=== PATIENT | male | born 1945 | race Two or more races ===

== ENCOUNTER 2019-04-24 10:08 | Inpatient (IN) | payer MEDICARE ==
[~2019-04-24] VITALS: Ht 180.3 cm; Wt 55.4 kg
[2019-04-24] MEDS ORDERED: SODIUM CHLORIDE 0.9% 500 ML IV ONE (10:33)
[2019-04-24 11:21] LABS: Basophils # (auto) 0.1 uL; Basophils % (auto) 1.2 % (0.0-2.0); Eosinophils # (auto) 0.2 uL; Eosinophils % (auto) 1.7 % (0.0-7.0); Hematocrit 36.3 % (41.0-53.0); Hemoglobin 11.9 g/dL (13.5-17.5); Lymphocytes % (auto) 11.2 % (10.0-50.0); Mean Corpuscular Hgb Conc. 32.8 g/dL (32.0-36.0); Mean Corpuscular Volume 85.3 fL (80.0-100.0); Monocytes # (auto) 0.7 uL; Neutrophils # (auto) 7.1 uL; Neutrophils % (auto) 77.9 % (37.0-80.0); Nucleated Red Blood Cells % 0.1 %; Platelet Count (auto) 251 10^3/uL (140-450); Red Blood Cells 4.26 10^6/uL (4.5-5.90); White Blood Cell 9.2 10^3/uL (4.4-10.8)
[2019-04-24 11:42] LABS: Alanine Aminotransferase 11 U/L (16-61); Albumin 2.8 g/dL (3.4-5.0); Anion Gap 8 (5-15); Aspartate Aminotransferase 10 U/L (15-37); BUN/Creatinine Ratio 20.2; Blood Urea Nitrogen 20 mg/dL (7-18); Calcium 8.2 mg/dL (8.5-10.1); Carbon Dioxide 28 mmol/L (21-32); Chloride 98 mmol/L (98-107); GFR African American 95 mL/min; GFR Non-African American 78 mL/min; Glucose 239 mg/dL (74-106); Magnesium 2.3 mg/dL (1.6-2.6); Potassium 4.2 mmol/L (3.5-5.1); Sodium 134 mmol/L (136-145)
[2019-04-24 11:46] LABS: Alkaline Phosphatase 114 U/L (45-117); Bilirubin, Total 0.4 mg/dL (0.2-1.0); Total Protein 6.9 g/dL (6.4-8.2)
[2019-04-24 16:27] LABS: Urine WBC None Seen /hpf (0 - 3)
[2019-04-24 16:33] LABS: Urine Bacteria NONE SEEN /hpf (None Seen); Urine Blood Negative /uL (Negative); Urine Specific Gravity 1.018 (1.001-1.035)
[2019-04-24] MEDS ORDERED: NITROGLYCERIN 0.4 MG SL TAB SL PRN (17:30)
[2019-04-24] MEDS ORDERED: MORPHINE SULF INJ 2 MG/ML SYRINGE 1ML IV PRN ×2 (17:30→17:45)
[2019-04-24] MEDS ORDERED: DEXTROSE (50%) 50ML SYRG IV PRN (17:30)
[2019-04-24] MEDS ORDERED: DOCUSATE SOD 100 MG CAP PO PRN (17:45)
[2019-04-24] MEDS ORDERED: HYDROcodone-ACET 5/325MG TAB PO PRN (17:45)
[2019-04-24] MEDS ORDERED: IPRATROPIUM BROM 0.5 MG/2.5ML INH SOL NEB PRN (17:45)
[2019-04-24] MEDS ORDERED: ACETAMINOPHEN 500 MG TAB PO PRN (17:45)
[2019-04-24] MEDS ORDERED: ALBUTEROL SULF 2.5 MG/0.5ML(0.5%) NEB SOLN NEB PRN (17:45)
[2019-04-24] MEDS ORDERED: ONDANSETRON HCL 4 MG/2 ML VIAL IV PRN (17:45)
[2019-04-24] MEDS ORDERED: FOLIC ACID 1 MG, MULTIPLE VITAMIN 10 ML, MAGNESIUM SULF SDV 50% 8 MEQ, THIAMINE INJ 100... INJ SCH ×5 (18:30)
--- NOTE | 2019-04-24 18:40 | NUR ---
RT NOTE: PT ASSESSED FOR PRN MED NEB TX, PT ON ROOM AIR SPO2 96% BS CLEAR AND DECREASED. HR 72, RR 18, FAMILY AT BEDSIDE. PT NOTIFIED OF PRN MED NEB TX AND IF SOB OCCURS TO HAVE RT PAGED. NO TX INDICATED AT THIS TIME.
[2019-04-24 18:54] VITALS: BP 154/61
[2019-04-24 19:14] VITALS: BP 146/88
[2019-04-24 19:17] VITALS: BP 184/99
--- NOTE | 2019-04-24 20:00 | NUR ---
Opening Shift Note Assumed care of patient, awake and alert. No S/S of distress/SOB or pain. Instructed on POC and to call for assist PRN, will continue to monitor for changes Q1hr and PRN.Family at bedside.Bed alarm on.
[2019-04-24] MEDS: ACCU-CHEK COMFORT CURVE STRIP VI SCH (21:22)
[2019-04-24] MEDS: InsuLIN REG 1unit/0.01ml Soln (100units/ml) SC SCH (21:23)
[2019-04-24 23:08] VITALS: BP 146/88
[2019-04-25] MEDS ORDERED: LATA0.0020 EACHEYE (00:42)
[2019-04-25] MEDS ORDERED: OXCA600T3 PO (00:42)
[2019-04-25] MEDS ORDERED: HYDR1TAB97 PO (00:42)
[2019-04-25] MEDS ORDERED: CITA-77 PO (00:42)
[2019-04-25] MEDS ORDERED: DONE10TA17 PO (00:42)
[2019-04-25] MEDS ORDERED: METF-370 PO (00:42)
[2019-04-25] MEDS ORDERED: ASPI-404 PO (00:42)
[2019-04-25] MEDS ORDERED: CAR125T PO (00:42)
--- NOTE | 2019-04-25 02:00 | NUR ---
Picture of the left posterior arm taken .
[2019-04-25 05:18] VITALS: BP 142/77
[2019-04-25 06:03] LABS: Basophils # (auto) 0.1 uL; Basophils % (auto) 0.9 % (0.0-2.0); Eosinophils # (auto) 0.3 uL; Eosinophils % (auto) 4.2 % (0.0-7.0); Hematocrit 36.2 % (41.0-53.0); Lymphocytes # (auto) 1.1 uL; Lymphocytes % (auto) 16.5 % (10.0-50.0); Mean Corpuscular Hgb Conc. 33.2 g/dL (32.0-36.0); Mean Corpuscular Volume 84.2 fL (80.0-100.0); Monocytes # (auto) 0.7 uL; Monocytes % (auto) 10.6 % (0.0-12.0); Neutrophils # (auto) 4.7 uL; Neutrophils % (auto) 67.8 % (37.0-80.0); Nucleated Red Blood Cells % 0.1 %; Platelet Count (auto) 236 10^3/uL (140-450); Red Cell Distribution Width 14.8 % (11.8-14.3); White Blood Cell 6.9 10^3/uL (4.4-10.8)
[2019-04-25 06:07] LABS: INR 1.01 (0.9-1.15); Partial Thromboplastin Time 35.6 sec (23.64-32.05)
[2019-04-25 06:24] LABS: BUN/Creatinine Ratio 17.2; Calcium 8.6 mg/dL (8.5-10.1); Magnesium 2.4 mg/dL (1.6-2.6); Potassium 3.8 mmol/L (3.5-5.1)
--- NOTE | 2019-04-25 06:40 | NUR ---
Respiratory note: PRN MED NEB TX NOT INDICATED AT THIS TIME. HR 61, RR 16, SPO2 94% ON RA, BILATERAL BS CLEAR AND SLIGHTLY DIMINISHED..PT INFORMED TO HIT CALL LIGHT IF FEELING SOB OR WHEEZING
[2019-04-25] MEDS: ACCU-CHEK COMFORT CURVE STRIP VI SCH ×4 (06:57→21:02)
[2019-04-25] MEDS: InsuLIN REG 1unit/0.01ml Soln (100units/ml) SC SCH ×4 (06:58→21:02)
--- NOTE | 2019-04-25 07:35 | NUR ---
Report given to Luz Taveras,patient is resting no distress, and told that the belonging form ,patient said that his daughter will be the to sign for the paper.
--- NOTE | 2019-04-25 08:50 | NUR ---
Opening Shift Note Assumed care of patient, awake and alert. No S/S of distress/SOB or pain. Instructed on POC and to call for assist PRN, will continue to monitor for changes Q1hr and PRN.
[2019-04-25 09:00] VITALS: BP 149/75
[2019-04-25] MEDS: PANTOPRAZOLE 40 MG TAB PO SCH (10:07)
[2019-04-25] MEDS: Glucerna Carbsteady SHAKE Vanilla 8oz PO SCH ×3 (10:07→12:00)
--- NOTE | 2019-04-25 11:10 | NUR ---
Nutrition consult/assessment Notes Please see attached link for complete assessment Est. Needs IBW (78 kg): 0758-6078 kcal (25-30 kcal/kgIBW), 78-93 gms pro (1.0-1.2 gms/kgIBW). Will continue to monitor pertinent labs and reassess nutrient need prn Addendum: 04/25/19 at [address] Amended: Links added.
[2019-04-25] MEDS ORDERED: IOHEXOL 300 MG/ML 100ML BOTTLE IJ ONE (12:29)
--- NOTE | 2019-04-25 12:30 | NUR ---
CT ABD WITH CONTRAST Patient taken off unit via wheelchair for CT Abd with contrast. Patients daughter Joan accompanied patient. Patients IV hep locked, line flushed with 10ml, line patent.
[2019-04-25 13:00] VITALS: BP 121/72
[2019-04-25 16:39] VITALS: BP 167/90
--- NOTE | 2019-04-25 18:37 | NUR ---
TELEPHONE ORDER Pts BP elevated. Paged manager of investigations hospitalist Mariusz Moncada. T/O read back and noted.
--- NOTE | 2019-04-25 20:00 | NUR ---
Opening Shift Note Assumed care of patient, awake and alert. No S/S of distress/SOB or pain. InsTructed on POC and to call for assist PRN, will continue to monitor for changes Q1hr and PRN.
[2019-04-25] MEDS: CARVEDILOL 3.125 MG TAB PO SCH (21:02)
[2019-04-25 21:47] VITALS: BP 187/106
--- NOTE | 2019-04-25 22:38 | NUR ---
Respiratory note: PT SEEN AND ASSESSED FOR PRN MED NEB TX AT 2238. TX NOT INDICATED AT THIS TIME. PT DISPLAYING NO SIGNS OF DISTRESS. BREATH SOUNDS WERE DIMINISHED BILATERALLY. HR 72 RR 18 POX 94% ON ROOM AIR. PT AWARE TO CALL FOR RT IF ANY DISTRESS OCCURS.
[2019-04-26 05:00] VITALS: BP 197/118
--- NOTE | 2019-04-26 05:28 | NUR ---
Called/paged Venu Taveras called re:patients blood pressure of 197/118, p-of 79 . Waiting for call back. Continue care.
--- NOTE | 2019-04-26 05:34 | NUR ---
returned call Emy Taveras returned call, updated on patient status and reason for call, orders received of labetalol 10mg.i.v.p x one. Continue care.
[2019-04-26] MEDS ORDERED: LABETALOL HCL 5 MG/ML ML 20ML VIAL IV ONE (05:45)
[2019-04-26] MEDS: ACCU-CHEK COMFORT CURVE STRIP VI SCH ×2 (05:51→11:30)
[2019-04-26] MEDS: InsuLIN REG 1unit/0.01ml Soln (100units/ml) SC SCH ×2 (05:51→11:30)
--- NOTE | 2019-04-26 07:17 | NUR ---
Report given to Luz Lino, patient is resting no distress.
--- NOTE | 2019-04-26 07:45 | NUR ---
Opening Shift Note Assumed care of patient, awake and alert, sitting up in bed. No S/S of distress/SOB or pain. Instructed on POC and to call for assist PRN, will continue to monitor for changes Q1hr and PRN.
[2019-04-26] MEDS: PANTOPRAZOLE 40 MG TAB PO SCH (08:43)
[2019-04-26] MEDS: CARVEDILOL 3.125 MG TAB PO SCH (08:43)
[2019-04-26] MEDS: Glucerna Carbsteady SHAKE Vanilla 8oz PO SCH ×3 (08:45→12:00)
--- NOTE | 2019-04-26 08:48 | NUR ---
BILLY Received phone call from [facility] stating patient "possible" E. Coli/ESBL in urine, results will finalize tomorrow 04/27/18. Will notify when rounding. Addendum: 04/26/19 at 0851 by Sirisha Suarez RN RN WRONG PATIENT
[2019-04-26 08:56] VITALS: BP 167/105
--- NOTE | 2019-04-26 08:59 | NUR ---
RT NOTE: PRN BREATHING TX. NOT INDICATED AT THIS TIME. NO S/S OF RESPIRATORY DISTRESS NOTED. PT. HR. 88, RR 18, POX 94% R/A.
--- NOTE | 2019-04-26 10:39 | NUR ---
FAMILY CONTACT Patients daughter at nursing station. Discussed patients plan of care with primary RN. Daughter asking if patient can discharge home today and f/u outpatient with PCP. Will inform MD when rounding.
--- NOTE | 2019-04-26 12:03 | NUR ---
ROUNDING Dr Zambrano rounding on patient. Plan of care discussed including patients request to f/u outpatient with PCP. Doctor states patient will discharge home today. Verbal order given to call in new prescriptions to [facility], order called in as ordered.
[2019-04-26] MEDS ORDERED: CARVEDILOL 3.125 MG TAB PO ONE (12:30)
[2019-04-26 13:24] VITALS: BP 189/99
--- NOTE | 2019-04-26 16:25 | NUR ---
With patients daughter and caregiver at bedside discharge instructions given as ordered. Encourage to follow up with PMD as instructed. All questions and concerns addressed. Patient verbalized understanding. Medication reconciliation form completed and copy given to patient. New prescription picked up at [facility] by daughter. IV removed with catheter intact, pressure dressing applied. Telemetry unit cleaned and returned to ICU. Patient taken to vehicle via wheelchair with all personal belongings, accompanied by staff and family member. No distress noted at time of departure.
== END 2019-04-26 16:25 | disposition home or self-care (01) | DRG 315 ==
LOC: ER 10:08 → EDBD 10:08 → TELE 10:09 → TELE-WESTW 18:36
PROVIDERS: ADMIT Nurse Practitioner Acute Care; ATTEND Internal Medicine
DX: I95.9 Hypotension, unspecified (principal); E44.0 Moderate protein-calorie malnutrition; Z68.1 Body mass index [BMI] 19.9 or less, adult; G40.909 Epilepsy, unspecified, not intractable, without status epilepticus; F03.90 Unspecified dementia, unspecified severity, without behavioral disturbance, psychotic disturbance, mood disturbance, and anxiety; M19.90 Unspecified osteoarthritis, unspecified site; J44.9 Chronic obstructive pulmonary disease, unspecified; I71.4 Abdominal aortic aneurysm, without rupture; Z96.649 Presence of unspecified artificial hip joint; R91.8 Other nonspecific abnormal finding of lung field; E11.9 Type 2 diabetes mellitus without complications; I10 Essential (primary) hypertension; Z80.0 Family history of malignant neoplasm of digestive organs; Z86.73 Personal history of transient ischemic attack (TIA), and cerebral infarction without residual deficits; Z88.8 Allergy status to other drugs, medicaments and biological substances; Z87.891 Personal history of nicotine dependence
CPT/HCPCS: 36415; 70450; 71045; 71260; 74176; 74177; 80048; 80053; 80061; 80156; 81001; 82105; 82378; 82962; 83036; 83605; 83615; 83735; 84154; 84443; 84484; 85025; 85610; 85730; 86301; 93005; 93306; G0378; J1815